=== PATIENT | female | born 1945 | race Caucasian/White ===

== ENCOUNTER → 2019-03-23 10:09 | Outpatient (CLI) | payer MEDICARE, MEDICAID, SELFPAY ==
[2019-03-23 10:26] LABS: Bacteria Urine None Seen; RBC Urine None Seen (0-5/HPF); WBC Urine None Seen (0-5/HPF)
[2019-03-23 10:44] LABS: Hematocrit 39.2 % (36-46); Hemoglobin 13.2 g/dL (12.0-16.0); Mean Corpuscular HGB Conc 33.6 % (30-36); Mean Corpuscular Hemoglobin 30.4 PG (26-34); Mean Corpuscular Volume 90.7 fL (80-100); Platelet Count 313 X10^3/uL (150-400); Red Blood Cell Count 4.33 X10^6/uL (4.0-5.2); White Blood Cell Count 5.5 X10^3/uL (4.5-11.0)
[2019-03-23 10:55] LABS: Hemoglobin A1C% w Est Avg Glu 5.3 % (4.0-6.0)
[2019-03-23 11:04] LABS: Transferrin 246 mg/dL (206-381)
[2019-03-23 11:12] LABS: BUN Creatinine Ratio 17.1 (6-22); Blood Urea Nitrogen 12 mg/dL (7-17); Calcium 9.4 mg/dL (8.4-10.2); Carbon Dioxide 30 mmol/L (22-32); Chloride 100 mmol/L (98-107); Estimated Glomerular Filt Rate > 60.0 mL/min (>60); Glucose 103 mg/dL (80-110); HEMOLYSIS < 15 (0-50); Potassium 4.6 mmol/L (3.4-5.1); Sodium 137 mmol/L (137-145)
[2019-03-23 11:33] LABS: Appearance Urine UA CLEAR; Bilirubin Urine UA NEGATIVE (NEGATIVE); Color Urine UA YELLOW; Glucose Urine UA NEGATIVE (Negative); Ketones Urine UA NEGATIVE (NEGATIVE); Leukocyte Esterase Urine UA NEGATIVE (NEGATIVE); Nitrite Urine UA NEGATIVE (Negative); Occult Blood Urine UA TRACE-INTACT (Negative); Protein Urine UA NEGATIVE (Negative); Urobilinogen Urine UA 0.2 E.U./dL (0.2)
[2019-03-23 11:42] LABS: Amorphous Sediment Urine 1+
== END ==
PROVIDERS: Visit Provider Orthopaedic Surgery
DX: E61.1 Iron deficiency (principal); N39.0 Urinary tract infection, site not specified; R73.9 Hyperglycemia, unspecified; Z01.818 Encounter for other preprocedural examination
CPT/HCPCS: 36415; 80048; 81001; 83036; 84466; 85027; 93005

== ENCOUNTER 2019-04-20 10:46 | Inpatient (IN) | payer MEDICARE, MEDICAID, SELFPAY ==
[2019-04-06 08:54] VITALS: BMI 36.9
[2019-04-20] VITALS (13 sets, daily range): BP systolic 121–157; BP diastolic 64–88; PULSE 66–79; RESP 14–21; TEMP 36.4–36.9; O2SAT 93–97; BMI 36.6
--- NOTE | 2019-04-20 | DI.RAD.S_ITS ---
PROCEDURE: XR SHOULDER LT 1V INDICATIONS: TOTAL LEFT SHOULDER ARTHROPLASTY TECHNIQUE: One view of the shoulder was acquired. COMPARISON: None. FINDINGS: Bones: Expected immediate postoperative appearance, status post reverse total shoulder arthroplasty. No acute fractures or dislocations. No suspicious bony lesions. Visualized ribs appear intact. Soft tissues: No suspicious soft tissue calcifications. Surgical drain in place. IMPRESSION: Expected appearance post reverse total left shoulder arthroplasty. Dictated by: Matt Jimenez M.D. on 04/20/2019 at 16:12 Approved by: Matt Jimenez M.D. on 04/20/2019 at 16:13
[2019-04-20] MEDS: LACTATED RINGERS 1,000 ML 42 ML IV ×2 (11:21→14:44)
[2019-04-20] MEDS: ACETAMINOPHEN 325 MG TABLET 975 MG PO ×3 (12:23→20:34)
[2019-04-20] MEDS: PREGABALIN 75 MG CAPSULE PO (12:23)
[2019-04-20] MEDS: CELECOXIB 200 MG CAPSULE PO (12:23)
--- NOTE | 2019-04-20 12:24 | PM.PREOP ---
Pre-operative Note Interval Note History & Physical reviewed/Exam performed by Physician: Yes Changes to H&P: No
--- NOTE | 2019-04-20 13:05 | SUR.PREOP ---
Block start time [1250] . Monitoring initiated and maintained throughout procedure. Oxygen and medications given by anesthesiologist instructions. Patient remained stable throughout procedure, no adverse reactions noted. Block end time [1301]. Transfered to OR via stretcher, handoff report given to Wilma Storm RN.
[2019-04-20] MEDS: CEFAZOLIN 2 GM/100 ML FROZ.PIGGY IV (13:09)
[2019-04-20] MEDS: TRANEXAMIC ACID 1,000 MG VIAL 2000 MG INJ ×2 (13:33→14:40)
--- NOTE | 2019-04-20 13:51 | SUR.OPER ---
Beach chair with Schlein shoulder positioner. Lower body on padded OR bed. Head in foam padded head cradle, secured with straps. Non-operative arm secured <90 degrees abduction. Pillow under knees. Safety belt at thigh. Cloth tape over blanket over lower legs.
--- NOTE | 2019-04-20 13:54 | PM.PROC.1 ---
Procedures Date/Time Date of procedure: 04/20/19 Time of procedure: 12:50 General Procedure description: Ultrasound guided interscalene brachial plexus nerve block for post op pain control after left shoulder arthroplasty by Dr. Lema. Risk and benefits of procedure discussed with patient. ASA monitoring applied to patient. O2 given via nasal cannula. 2 mg Versed and 50 mcg fentanyl given for procedural sedation. Skin site was prepped with chlorhexidine and allowed to fully dry. Sterile gloves, mask, hat and probe cover were used to maintain sterility. 2% lidocaine and 30ga needle was used to make a small skin wheal at needle insertion site. Under ultrasound guidance, a 21ga 50mm Pajunk needle was directed into the interscalene groove (middle/anterior scalenes) near the brachial plexus. Patient reported no parasthesias. After negative aspiration, 20 mL 0.5% ropivicaine and 10mg dexamethasone were injected around brachial plexus. Patient tolerated procedure well.
--- NOTE | 2019-04-20 15:00 | PM.OP.1 ---
Operative Date/Time/Diagnoses Date of procedure: 04/20/19 Time of procedure: 14:50 Post-op diagnosis: same Procedure & Clinicians Procedure: Left reverse total shoulder replacement Same procedure as scheduled: Yes Indications: The patient is had chronic left shoulder pain unresponsive to nonoperative therapies. Radiographic studies have revealed changes consistent with a massive rotator cuff tear. They have elected to proceed with reverse total shoulder replacement after discussion of the risks benefits and alternatives. Risks discussed included but were not limited to: Failure to improve, instability, infection, nerve damage, deep venous thrombosis, pulmonary embolism, stroke, coma, myocardial infarction and . Surgeon: Saurabh Lema Anodize Machine Operator: Carolina Genao Click Yes if Unassisted: No Anesthesia Type: General, Peripheral nerve block and Local Operative Notes Findings: Massive rotator cuff tear with early arthritic changes. Closure Type: primary Specimen(s): none sent Prosthetic devices, grafts, tissues, transplants, or devices: Prosthetics used in this procedure were manufactured by the [employer] and included an RSP reverse total shoulder system with a 30 mm porous-coated base plate, 4 locking bolts measuring 26 mm, 30 mm and 2 14 mm bolts. There was a 32 -4 glenoid head with retaining screw and a 10 mm small shell humeral stem with a 32 mm +4 humeral socket. Applied: drain(s) and implant(s) Estimated Blood Loss (mL): 100 Blood products transfused: none Procedure in detail: The patient was seen in the preoperative area where they identified the left shoulder as the operative site and this was marked with my initials. They received preoperative antibiotics and underwent the induction of an interscalene block. They were taken to the operating room and placed on the operating room table in a supine position with the underwent the induction of a general anesthetic. There were then repositioned in the ?beach chair? position using a dedicated positioner. All pressure points were well padded. The knees were slightly bent to prevent tension on the sciatic nerves. The left arm was prepared from the fingertips to the base of the neck with ChloraPrep in the usual fashion and draped through sterile drapes. An approximately 15 cm incision was created starting at the clavicle just above the coracoid and going to the deltoid insertion. The deltopectoral interval was used to access the shoulder. The cephalic vein was damaged and cauterized during dissection. The upper 1 cm of the pectoralis major was released. The biceps tendon was identified and used as a guide to releasing the remaining subscapularis. The biceps itself was tenodesed over the pectoralis tendon using a suture. The subscapularis was tagged for later repair. The shoulder was dislocated and a proximal humeral osteotomy performed using an extramedullary guide. A proximal humeral protector was then placed. Retractors were placed access the glenoid. A 360 degree release was performed of the remaining subscapularis with care being taken to protect the axillary nerve. The soft tissues were removed circumferentially around the glenoid. The guide was used to drill the guide hole in the center of the inferior glenoid. The tap was placed and used as a guide for the reamer. The tap was then removed and the glenoid base plate inserted. The peripheral locking screws were then placed through the appropriate guide. A trial glenoid head was applied. We then turned our attention to the humerus. The proximal humeral protector was removed. Cylindrical reamers were used to size the canal. Broaching was then performed beginning with a small broach and working up until a line to line fit with the reamer was obtained. The guide for the proximal metaphyseal reamer was then applied and the metaphysis was reamed appropriately. The trial metaphyseal portion of the body was then applied to the broach. Trial reductions were performed and the size of the glenoid head and the cup were optimized. Stability was checked in maximal internal and external rotation and range of motion was checked to allow access to the top of the head, internal rotation to an excess of 50? in the ?scarecrow position? and the ability to reach the groin. The appropriate final prosthetic components were then opened. The glenoid head was impacted into position and checked for rotational and axial stability before placing the set screw. Drill holes for repair of the subscapularis were performed and sutures placed. The humeral prosthetic was then impacted into position. The humeral cup was placed. The joint was relocated and irrigated. The subscapularis was repaired to the previously placed sutures. A deep drain was placed. The deltopectoral interval was reapproximated with 0 Vicryl. Subcutaneous layer was closed with interrupted 3-0 Vicryl and skin with a running 3 0 V lock suture. Subcutaneous tissues were then infiltrated with 0.5% Marcaine for postoperative pain control. An Aquacel Ag dressing was applied and the patient's arm was placed in a sling. The patient was then transferred to the recovery room in good condition having tolerated the procedure well. Complications: none Condition: stable Disposition: PACU Plan for aftercare: The patient will be maintained on pendulum exercises and a sling for 6 weeks. DVT prophylaxis will be with sequential compression devices and mini dose aspirin.
[2019-04-20] MEDS: LACTATED RINGERS 1,000 ML 125 ML IV (16:25)
[2019-04-20] MEDS: ASPIRIN EC 81 MG TABLET PO (20:34)
[2019-04-21] MEDS: LACTATED RINGERS 1,000 ML 125 ML IV (00:09)
[2019-04-21] MEDS: MAG HYDROX/ALUM/SIMETH 30 ML UDC PO (00:54)
[2019-04-21 05:10] VITALS: BP 153/76; PULSE 56; RESP 19; TEMP 36.5; O2SAT 96
[2019-04-21 05:34] LABS: Hematocrit 34.7 % (36-46); Hemoglobin 11.5 g/dL (12.0-16.0); Mean Corpuscular HGB Conc 33.1 % (30-36); Mean Corpuscular Hemoglobin 29.9 PG (26-34); Mean Corpuscular Volume 90.5 fL (80-100); Platelet Count 254 X10^3/uL (150-400); Red Blood Cell Count 3.83 X10^6/uL (4.0-5.2); White Blood Cell Count 13.6 X10^3/uL (4.5-11.0)
--- NOTE | 2019-04-21 07:02 | PM.DS.1 ---
History of Present Illness Date Patient Seen: 04/21/19 Time Patient Seen: 07:03 Chief complaint: [id number] Narrative: The history and physical are contained in the chart previously completed note. Please refer to that note for this information. Discharge Providers Date of admission: 04/20/19 10:46 Discharge Date: 04/21/19 Primary care physician: Alex Arreguin MD Consults: 04/20/19 15:54 Consult to Discharge Planning Routine Comment: Consult to Physical Therapy Evaluate & Treat Comment: Physician Instructions: Evaluate and Treat Discharge provider: Saurabh Lema MD Summary Discharge Diagnosis: 1. 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 Post hemorrhagic anemia Hospital Course: The patient was admitted the hospital and taken directly to the operating room on April 20, 2019. She underwent a left reverse total shoulder replacement without difficulty. She was stable postoperative day 1 and ready for discharge. Status at Discharge Cognitive/behavioral status at discharge: oriented Functional status at discharge: independent ambulation Overall status at discharge: patient is progressing back to baseline Time Spent with Patient Less than 30 minutes Exam Vital Signs (past 8 hours): - 04/20/19 23:20 04/21/19 05:10 Temperature 97.9 F 97.7 F Pulse Rate 66 56 L Respiratory Rate 18 19 Blood Pressure 129/64 153/76 H Pulse Oximetry 93 96 Oxygen Delivery Method Room Air Oxygen Flow Rate 0 Narrative Exam Narrative: Left shoulder wound is dressed with no drainage on the bandage. Light touch is intact in the radial, ulnar, median and muscular cutaneous nerve distribution. Light touch is still absent in the axillary nerve distribution. She can fire her extensor and abductor for her thumb, her abductors for her fingers and her deltoid. Her biceps is still immobile from the block. Objective Labs Result Diagrams: 04/21/19 05:01 Labs: Laboratory Results - last 24 hr 04/21/19 05:01 WBC 13.6 H RBC 3.83 L Hgb 11.5 L Hct 34.7 L MCV 90.5 MCH 29.9 MCHC 33.1 RDW 14.0 Plt Count 254 Discharge Plan Discharge Plan Patient Disposition: Home Discharge Med Rec/Prescriptions Prescriptions: New acetaminophen 325 mg Tablet 975 mg PO TID 30 Days Qty: 270 RF: 0 aspirin 81 mg Tablet,Delayed Release (Dr/Ec) 81 mg PO BID 42 Days Qty: 84 RF: 0 hydromorphone 2 mg Tablet 2 mg PO Q4HR PRN (Reason: Pain, Severe (7-10)) Qty: 40 RF: 0 calcium carbonate 200 mg calcium (500 mg) Tablet,Chewable 1,000 mg PO Q4HR PRN (Reason: Dyspepsia) Qty: 50 RF: 0 Continued lisinopril-hydrochlorothiazide 20-12.5 mg Tablet 1 tab PO DAILY RF: 0 Discontinued hydrocodone-acetaminophen [[place]] 5-325 mg Tablet 1 tab PO Q4-6H PRN (Reason: Pain (Scale Score 1-3)) RF: 0 mupirocin 2 % Ointment 1 applic TOPICAL BID RF: 0 Follow up/Referrals: Alex Arreguin MD [Primary Care Provider] - Saurabh Lema MD [Physician] - 2 Weeks Provider Discharge Instructions Diet: Diet as Tolerated and Regular Activity: You may use your left hand in front of your torso. Come out of the sling for pendulum exercises. Keep arm in the sling otherwise. Cold/Heat Therapy: Apply ice for 15 minutes of every hour as needed for pain relief. Skin/Wound/Dressing Care Report to your healthcare provider any signs of infection, such as:: chills, fever, night sweats, increased pain, unusual drainage and unusual redness Visit Report/Discharge Packet Instructions: DI for Shoulder Replacement Stand Alone Forms: Surgery Discharge Discharge Data Primary Care Provider: Alex Arreguin Attending Provider: Saurabh Lema Admit Date/Time: 04/20/19 10:46
[2019-04-21 08:00] VITALS: BP 145/79; PULSE 62; RESP 19; TEMP 36.6; O2SAT 98
--- NOTE | 2019-04-21 08:58 | PC.NURSE ---
Day shift: Bienvenido-vac taken out by mailing machine operator Adrian per MD orders. Pt tolerated well. Pt to d/c home today at 1000.
--- NOTE | 2019-04-21 08:59 | PC.NURSE ---
Per orders and staff Nurse Richard Hemovac was removed intact and without difficulty. Hemovac disposed of per protocal. Pt anticipates going home this morning.
[2019-04-21] MEDS: ACETAMINOPHEN 325 MG TABLET 975 MG PO (09:02)
[2019-04-21] MEDS: ASPIRIN EC 81 MG TABLET PO (09:03)
[2019-04-21] MEDS: LISINOPRIL 20 MG TABLET PO (09:04)
[2019-04-21] MEDS: hydroCHLOROthiazide 12.5 MG CAPSULE PO (09:04)
[2019-04-21] MEDS: CALCIUM CARBONATE 500 MG TAB 1000 MG PO (09:11)
--- NOTE | 2019-04-21 09:15 | PT.IIE ---
Current Diagnoses Other specific arthropathies, not elsewhere classified, left shoulder (04/20/19) Complete rotator cuff tear or rupture of left shoulder, not specified as traumatic (04/20/19) Surgery Performed Operation Date: 04/20/19 13:15 Actual Procedures p Total Shoulder Arthroplasty - Reverse(Left) - Saurabh Lema MD Surgical History (Last Reviewed 04/20/19 @ 16:52 by Prince Palmer, PT) History of incision and drainage (Acute) History of lumbar fusion (Acute ~05/2015) Hx of arthroscopy of right knee (Acute) Hx of bilateral cataract extraction (Acute) Hx of repair of right rotator cuff (Acute) Hx of sinus surgery (Acute) Medical History (Last Reviewed 04/20/19 @ 16:52 by Prince Palmer, PT) Fibromyalgia (Acute) GERD (gastroesophageal reflux disease) (Acute) HTN (hypertension) (Acute) History of prosthetic unicompartmental arthroplasty of left knee (Acute) Physical Therapy Inpatient Evaluation/Re-Eval M1 PT/OT-IP Prior Functional Status Start: 04/20/19 17:03 Freq: NEEDED Status: Discharge Protocol: Document 04/21/19 09:15 AB (Rec: 04/21/19 12:26 AB [id number]) Medical Review Prior Functional Status Medical History Reviewed Yes Communication able to make needs known Mobility and Gait pt stated that she is independent with all mobilities and ambultion without AD Social History Household Members none Living Arrangements House Number of Floors (Floors) One Floor Number of Stairs To Enter/Railing? 4 steps to enter with L rail ascending Home Environment High Toilet Walk in Shower Home Equipment Hand Held Shower Grab Bars In Shower Additional Social History Comment pt stated that her son will check on her and she has neighbors that are willing to help M2 PT-IP Current Condition Start: 04/20/19 17:03 Freq: NEEDED Status: Discharge Protocol: Document 04/21/19 09:15 AB (Rec: 04/21/19 12:26 AB [id number]) Physical Therapy Current Condition Current Condition Evaluation Date 04/21/19 Treatment Diagnosis s/p L reverse TSA; difficulty in walking Onset Date 04/20/19 Precautions Shoulder Precautions Sling PROM Internal Rotation to Body No External Rotation No Abduction Forward Flexion to 90 degrees Pendulums Weight Bearing Status Weight Bearing Status Non-Weight Bearing Allowed Weight Bearing Amount (enter % NWB LUE or #) (%) M3 PT-IP Subjective Start: 04/20/19 17:03 Freq: NEEDED Status: Discharge Protocol: Document 04/21/19 09:15 AB (Rec: 04/21/19 12:26 AB [id number]) Subjective Physical Therapy Visit Type Type Initial Evaluation Visit Start Time 09:15 Visit Stop Time 10:02 Total Visit Minutes 47 Number of EARLY CHILDHOOD SPECIAL EDUCATOR Visits 0 Physical Therapy Visit Comments Patient Comments pt agreeable to do PT Therapy Pain Assessment Pain Present Pain Present Denied Pain M4 PT-IP Mobility and Gait Start: 04/20/19 17:03 Freq: NEEDED Status: Discharge Protocol: Document 04/21/19 09:15 AB (Rec: 04/21/19 12:26 AB [id number]) PT-Bed Mobility Assessment Supine to Sit Supine to Sit Standby Assistance Sit to Supine Sit to Supine Standby Assistance Scooting Scooting to Edge of Bed Standby Assistance Scooting Up and Down in Bed Standby Assistance PT-Transfer Assessment Sit to and From Stand Sit to and from Stand Standby Assistance Equipment Transfer Assistive Device Gait Belt Gait Assessment Gait Gait Assistance Required: Standby Assistance Distance (Feet) 300 Able to Maintain Weight Bearing Status Yes During Gait Assistive Devices Assistive Device None Gait Belt Orthotic/Prosthetic Devices or Brace: Yes Gait Deviations General Gait Pattern Antalgic Decreased Stride Length Decreased Feet Clearance Factors Limiting Gait Function Factors Limiting Gait Function Decreased Activity Tolerance Decreased Strength Limited Range of Motion Poor Balance Poor Safety Awareness Stair Climbing Assessment Evaluation Level of Assist On Stairs Standby Assistance Devices Stair Climbing Assistive Devices Left Railing Technique/Endurance Stair Climbing Direction Ascend and Descend Stair Climbing Technique Step to Step Number of Steps Climbed 3 Query Text: Stair Climbing Set # Repetitions (reps) 5 PT-Balance Assessment Sitting Balance and Reactions Static Sitting Balance Ability Good Dynamic Sitting Balance Ability Good Standing Balance and Reactions Static Standing Balance Ability Good Dynamic Standing Balance Ability Fair Device Used without AD M5 PT-IP Objective Assessments Start: 04/20/19 17:03 Freq: NEEDED Status: Discharge Protocol: Document 04/21/19 09:15 AB (Rec: 04/21/19 12:26 AB [id number]) Orientation Orientation/Cognition Level of Alertness Alert Orientation Name Age Birthday Month Date Year Day of Week Place Situation Language Function Ability Hard of Hearing Gross Range of Motion Lower Extremity ROM Assessment Within Functional Limits Strength Lower Extremity Strength Assessment Within Functional Limits Coordination Assessment Gross Coordination Gross Coordination WNL Sensation Assessment Sensation Gross Sensation WNL Muscle Tone Muscle Tone WNL Yes M6 PT-IP Treatment Start: 04/20/19 17:03 Freq: NEEDED Status: Discharge Protocol: Document 04/21/19 09:15 AB (Rec: 04/21/19 12:26 AB [id number]) Physical Therapy Treatment Exercises Exercises Shoulder Pendulums Elbow Flexion/Extension Wrist ROM Hand ROM Education Education Provided Precautions Weight Bearing Status Post-Op Packet Safety Brace Education [place] Patient Other Treatments Other Treatment Performed educated pt on hown to don/ doff sling pt able to dangle L shoulder but unable to relax Lshoulder to safely complete pendulum. M7 PT-IP Assessment and Plan Start: 04/20/19 17:03 Freq: NEEDED Status: Discharge Protocol: Document 04/21/19 09:15 AB (Rec: 04/21/19 12:26 AB [id number]) PT Summary Assessment and Plan Potential Rehabilitation Potential Good Status of Condition at Evaluation Stable Summary Impairments Pain ROM Strength Balance Coordination Sensation Tone Cognition Bed Mobility Transfers Gait Activity Tolerance Assessment Summary pt requiring SBA with mobility . pt plans to go home and stated that her neighbors can assist her if needed. Goals Bed Mobility Goal Independent Transfer Goal Independent Gait Goal Independent Gait Distance >300 Other Goals up/down 4 steps L side rail ascending mod I Days to Meet Goals 3 Frequency of Treatment Frequency Of Treatment Twice a Day Treatment Plan Physical Therapy Treatment Plan Bed Mobility Training Transfer Training Gait Training Therapeutic Exercise Balance Retraining Post Op Education Discharge Planning Hot or Cold Pack Neuromuscular Re-ed Coordination Retraining Manual Therapy Recommendations To Nursing Amount of Assist Needed Standby Assistance Discharge Recommendations PT Discharge Recommendations Home with Assistance Outpatient PT
--- NOTE | 2019-04-21 10:31 | PC.NURSE ---
Day shift: Pt taken to private car driven by son by CREDIT AUTHORIZER in at approx 1025. Paperwork signed and all questions answered. Pt has MD scrips and all personal belongings.
--- NOTE | 2019-04-21 12:33 | CM.DANOTE ---
DCP/Assessment: Reviewed chart. Patient is a 73yr old female admitted to [facility] for left TSA performed on 04-20-19. PCP is Dr. Arreguin. Primary payor is 1)Medicare Advantage 2)Medicaid. Met with patient explained CM/SW role. Patient reports that she hopes to d/c home today. Patient resides alone and has supportive friends/family nearby. Patient indicates that she uses no DME at baseline and considers herself completely I in all ADL's. P: Anticipate home today. GATITO Quintanilla Discharge Planning/Care Management CM Discharge Assessment Start: 04/21/19 12:31 Freq: Status: Discharge Protocol: Document 04/21/19 12:31 KJS (Rec: 04/21/19 12:33 KJS [id number]) Discharge Planning Assessment Assigned Job Placement Specialist GATITO Quintanilla Contact Information Kendall Najera (son) Advance Directives? No: Declines further information, has paperwork at home History Provided By Patient Prior Living Arrangements House Household Members none Type of transporation used prior to Drives own vehicle admit Independent with ADL's Yes Is patient alert and oriented? Yes Caregiver for Another No Barriers to Discharge No Discharge Plan Home Transportation Arrangement Family to provide transport. Referrals Initiated None needed Whiteboard Updated in Patient Room with Yes name and ext. # of Job Placement Specialist Review Status In Process Next Review Type Continued Stay Review Pre-Anesthesia Assessment Start: 04/06/19 08:54 Freq: Status: Complete Protocol: Document 04/06/19 08:54 CAB (Rec: 04/06/19 09:17 CAB [id number]) Pre-Anesthesia Assessment Patient Information Reviewed Via Phone Assessment Assessment Completed With Patient Diagnostic Results BMP/CMP CBC EKG Comment Labs/EKG at 03/23/19 Primary Care Provider Alex Arreguin Seen Specialist in Last 12 Months Yes Specialist Seen Orthopedist Primary Language Gabonese Preferred Language Gabonese Field Hand Required No Height 170.18 cm Weight 107.048 kg Body Mass Index (BMI) 36.9 Visual Impairment No Limitations Visual Assist None Dentition Type Full- Upper Barriers to Learning None Other Aids No Hx Anesthesia Reactions No Hx Family Anesthesia Reaction No Hx Malignant Hyperthermia No Hx Blood Transfusions No Anesthesia Review Requested No Appraisal Analyst No alcohol intake current alcohol intake frequency 0-2 drinks per day Smoking Status Former smoker Tobacco type cigarettes how long ago did patient quit smoking Quit age 61 Substance Use Type does not use Pain Present Pain Reported Musculoskeletal Symptoms Back Pain Joint Pain Limited Range of Motion Numbness History of Falling (Recent or History of Yes ) Patient is completely paralyzed or No completely immobile Mental Status Oriented to own ability Is patient on oxygen? No Does patient have MERCADO/SOB No Hx Sleep Apnea No Currently Taking a Beta Tawanda No Can You Climb a Flight of Stairs Without Yes SOB Hx Chest Pain No Hx SOB No Hx Syncope or Dizziness No Anti-Coagulant Therapy No Has a Electricity Trader No Cardiac Testing No Hx Pacemaker/ICD No Pacemaker Rep Required? 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 Marital Status Single Lives With none Prior Living Arrangements House Number of Floors (Floors) Two Floors Support System Child/Children Does the Patient Have Assistance After Yes Surgery Patient Discharge Plan Description Return Home Comment Does not plan to have anyone spend the nights at [facility] Feels Safe in Current Environment Yes Been Physically Hurt or Threatened By a No Person in Current Environment Do you have thoughts of harming yourself None or others? Are you currently considering suicide? No Do you have a plan to hurt yourself or No Plan others? Do You Have Any Spiritual Beliefs That No May Affect Your HC Choices? Do You Have Any Cultural Practices That No May Affect Your HC Choices? Who Can We Speak to About Patient's Care Family, friends Identifying Code for Release of Patient Declines to issue Information Health Care Proxy/Next of Kin Kendall (son) Health Care Proxy Emergency Contact Name Kendall (son) Emergency Contact Advance Directives? No: Declines further information, has paperwork at home Power of Loading Unit Operator Seating No PAC Instructions Durable medical equipment Medications to take/avoid Nasal antibiotic No ETOH/petroleum product on skin DOS NPO Post-op transportation Pre-surgical wash Sturdy shoes/comfortable clothes Do not bring valuables and remove jewelry
== END 2019-04-21 10:33 | disposition home or self-care (01) | DRG 483 ==
PROVIDERS: Admitting Provider Orthopaedic Surgery; PCP Family Medicine; Visit Provider Orthopaedic Surgery
PROC: 0RRK00Z Replacement of Left Shoulder Joint with Reverse Ball and Socket Synthetic Substitute, Open Approach (ICD-10-PCS; CPT 23472; principal; 2019-04-20 13:15)
DX: M75.122 Complete rotator cuff tear or rupture of left shoulder, not specified as traumatic (principal); I10 Essential (primary) hypertension; M79.7 Fibromyalgia; M12.812 Other specific arthropathies, not elsewhere classified, left shoulder; G56.22 Lesion of ulnar nerve, left upper limb; Z87.891 Personal history of nicotine dependence
CPT/HCPCS: 36415; 64415; 73020; 85027; 97161; 97530; C1776; J0690; J1100; J2250; J2405; J2704; J3010